=== PATIENT | female | born 1990 | race Caucasian/White ===

== ENCOUNTER 2017-09-10 19:23 | Emergency (ER) | payer BC, SELFPAY ==
[2017-09-10] MEDS ORDERED: Ondansetron ODT 4 MG TAB ONE (20:14)
[2017-09-10] MEDS ORDERED: Acetaminophen 500 MG TAB ONE (20:14)
== END 2017-09-10 20:20 | disposition home or self-care (01) ==
LOC: ERS 19:23
DX: J11.1 Influenza due to unidentified influenza virus with other respiratory manifestations (principal)
CPT/HCPCS: 87804; 99283; Q0162

== ENCOUNTER 2018-09-01 06:00 | Inpatient (IN) | payer BC, OTHER ==
[~2018-09-01 06:00] MED LIST: Butorphanol Tartrate 1 MG/ML VIAL SLOW IVP PRN; Carboprost 250 MCG/ML AMP IM PRN; Diphenoxylate HCl/Atropine Tablet PO PRN; Docusate 100 MG CAP PO PRN; HYDROcodone/Acetaminophen 5/325 mg Tablet PO PRN; Ibuprofen 800 MG TAB PO PRN; Lidocaine 1% (PF) 30 ML VIAL SC PRN; Misoprostol 200 MCG TAB PR PRN; NS w/ Oxytocin 10 units 500 ML IV SCH; Ondansetron PF 4 MG/2 ML Vial IVP PRN; Promethazine HCl 25 MG/ML VIAL IM PRN
[2018-09-01 06:50] VITALS: BMI 34.9
[2018-09-01] MEDS: Lactated Ringer's 1,000 ML IV SCH ×3 (07:25→22:31)
[2018-09-01 07:48] LABS: Hemoglobin 10.6 g/dL (12.0-16.0); Mean Corpuscular HGB CONC 34.2 g/dL (32.0-36.0); Mean Corpuscular Hemoglobin 31.2 pg (27.0-31.0); Mean Corpuscular Volume 91.3 fL (78.0-98.0); Mean Platelet Volume 7.2 fL (7.4-10.4); Platelet Count 223 thou/uL (130-400); RBC Distribution Width 13.2 % (11.5-14.5); White Blood Cell (WBC) Count 9.4 thou/uL (4.8-10.8)
[2018-09-01 08:24] LABS: Syphilis Antibody Nonreactive (Nonreactive); Syphilis Antibody Index 0.03 S/CO (<1.00 Non-Reactive)
[2018-09-01 08:28] LABS: HBSAg Index 0.18 S/CO (0-0.99); Hep B Surf Ag Non-Reactive S/CO (NonReactive)
[2018-09-01] MEDS ORDERED: Fentanyl 4 mcg/Bup 0.1% Cadd 100 ML ONE ×2 (09:06→15:36)
[2018-09-01] MEDS: Calcium Carbonate 500 MG ChewTAB PO PRN ×3 (09:14→14:24)
[2018-09-01] MEDS ORDERED: Lidocaine 1.5%/Epinephrine 1:200,000 5 ML AMPUL IJ ONE (09:33)
[2018-09-01] MEDS ORDERED: Promethazine HCl 25 MG/ML VIAL IM PRN ×2 (09:50→18:53)
[2018-09-01] MEDS ORDERED: Naloxone HCl 0.4 mg/ml Vial IVP PRN ×2 (09:50)
[2018-09-01] MEDS ORDERED: diphenhydrAMINE 50 MG/ML VIAL IVP PRN (09:50)
[2018-09-01] MEDS ORDERED: Lactated Ringer's 500 ML IV PRN (09:50)
[2018-09-01] MEDS ORDERED: Ondansetron PF 4 MG/2 ML Vial IVP PRN ×2 (09:50→18:53)
[2018-09-01] MEDS ORDERED: Eucerin (Mineral Oil/Petrolatum,White) 30 gm Jar TOP PRN (09:50)
[2018-09-01] MEDS ORDERED: Acetaminophen 325 MG TAB PO PRN (09:50)
[2018-09-01] MEDS ORDERED: ePHEDrine/0.9% NaCl/PF SYRINGE 50 mg/10 ml SLOW IVP PRN (09:50)
[2018-09-01] MEDS: Fentanyl 4 mcg/Bupivacaine 0.1% Cassette 100 ML EPIDURAL SCH ×2 (09:52→15:42)
[2018-09-01] MEDS ORDERED: Communication Order-Pharmacy FS SCH (10:00)
[2018-09-01] MEDS ORDERED: Bupivacaine/Epinephrine 0.25% 30 ML VIAL ONE (15:00)
[2018-09-01] MEDS: NS / Oxytocin 40 units/1000ml 1,000 ML IV PRN ×2 (16:56→17:21)
[2018-09-01] MEDS ORDERED: Preparation H Ointment 28 GM TUBE PR PRN (18:53)
[2018-09-01] MEDS ORDERED: Misoprostol 200 MCG TAB VAG PRN (18:53)
[2018-09-01] MEDS ORDERED: Benzocaine/Menthol 20-0.5% 60 ML CAN TOP PRN (18:53)
[2018-09-01] MEDS ORDERED: diphenhydrAMINE 25 MG CAP PO PRN (18:53)
[2018-09-01] MEDS ORDERED: Lanolin Ointment 7 GM TUBE TOP PRN (18:53)
[2018-09-01] MEDS ORDERED: Bisacodyl 10 MG SUPP PR PRN (18:53)
[2018-09-01] MEDS ORDERED: Milk Of Magnesia 30 ML UDCUP PO PRN (18:53)
[2018-09-01] MEDS ORDERED: NS / Oxytocin 40 units/1000ml 1,000 ML IV SCH (18:53)
[2018-09-01] MEDS ORDERED: Adacel (T-DAP) 0.5 ML SYRINGE IM ONE (18:53)
[2018-09-01] MEDS ORDERED: Zolpidem Tartrate 5 MG TAB PO PRN (18:53)
[2018-09-01] MEDS ORDERED: Varicella virus, LIVE 0.5 ML VIAL SC ONE (18:53)
[2018-09-01] MEDS ORDERED: HYDROcodone/Acetaminophen 5/325 mg Tablet PO PRN ×2 (18:53)
[2018-09-01] MEDS ORDERED: Measles/Mumps/Rubella 10 MCG/0.5 ML VIAL SC ONE (18:53)
[2018-09-01] MEDS: Ibuprofen 800 MG TAB PO SCH (19:56)
[2018-09-01] MEDS: Docusate Calcium (SURFAK) 240 MG CAP PO SCH (19:57)
[2018-09-02] MEDS: Ibuprofen 800 MG TAB PO SCH ×2 (04:00→13:51)
[2018-09-02 06:04] LABS: Hemoglobin 10.2 g/dL (12.0-16.0); Mean Corpuscular HGB CONC 33.7 g/dL (32.0-36.0); Mean Corpuscular Hemoglobin 31.4 pg (27.0-31.0); Mean Platelet Volume 7.2 fL (7.4-10.4); Platelet Count 208 thou/uL (130-400); RBC Distribution Width 13.4 % (11.5-14.5); Red Blood Cell (RBC) Count 3.27 mill/uL (4.20-5.40); White Blood Cell (WBC) Count 10.5 thou/uL (4.8-10.8)
[2018-09-02] MEDS ORDERED: Ferrous Sulfate 325 MG TAB PO SCH (08:00)
[2018-09-02] MEDS: Docusate Calcium (SURFAK) 240 MG CAP PO SCH (08:53)
[2018-09-02] MEDS ORDERED: Prenatal Vitamin 1 TAB PO SCH (09:00)
[2018-09-02 16:05] VITALS: BP 127/79; TEMP 98.4
--- NOTE | 2018-09-02 18:27 | PDOC.LDHP ---
Labor and Delivery H&P Chief complaint: scheduled induction HPI: 28 y/o at 39 and 4/7 weeks with borderline Oligohydramnios for term medical induction of labor. Due date: 09/04/18 Grav: 4 Para: 1 Current complications: oligohydramnios Abnormal US findings: Yes Current medications: pre-mily vitamins Previous surgical history: none Allergies/Adverse Reactions: Allergies Allergy/AdvReac Type Severity Reaction Status Date / Time No Known Drug Allergies Allergy Verified 09/01/18 06:43 Social history: none - Physical Exam Vital signs reviewed and normal: yes General: NAD, resting Heart: RRR Lungs: nonlabored breathing Abdomen: NTTP Extremeties: no edema FHT: category 1 - Assessment L&D Assessment: medically indicated induction - Plan Plan: admit to L&D
--- NOTE | 2018-09-02 18:30 | PDOC.PP ---
Post Progress Note Post Day #: 1 PO intake tolerated: yes Flatus: yes Ambulation: yes Vital Signs (12 hours) Temp Pulse Resp BP Pulse Ox 09/02/18 15:38 98.4 F 91 16 127/79 98 09/02/18 11:40 98.2 F 79 20 117/69 09/02/18 08:03 98.1 F 80 20 110/57 L 98 Weight Weight 197 lb - Physical Examination General: NAD Cardiovascular: no m/r/g, RRR Respiratory: clear to auscultation bilaterally, non-labored breathing Abdominal: + bowel sounds Extremities: negative homans (B) Neurological: no gross focal deficits Psychiatric: A&Ox3, normal affect (DC to home planned later today.) Result Diagrams: 09/02/18 04:49 Additional Labs: Post Labs Blood Type A POSITIVE 09/01/18 07:35 Hep Bs Antigen Non-Reactive S/CO (NonReactive) 09/01/18 07:35
== END 2018-09-02 18:21 | disposition home or self-care (01) | DRG 807 ==
LOC: L&D 06:20 → 3SE 19:06
PROVIDERS: ADMIT Obstetrics & Gynecology; ATTEND Obstetrics & Gynecology
PROC: 10E0XZZ Delivery of Products of Conception, External Approach (ICD-10-PCS; principal; 2018-09-01)
PROC: 10907ZC Drainage of Amniotic Fluid, Therapeutic from Products of Conception, Via Natural or Artificial Opening (ICD-10-PCS; 2018-09-01)
DX: O41.03X0 Oligohydramnios, third trimester, not applicable or unspecified (principal); Z37.0 Single live birth; Z3A.39 39 weeks gestation of pregnancy
CPT/HCPCS: 36415; 51702; 85027; 86780; 86850; 86900; 86901; 87340; 90707; 90715; 90716; J2001; J2405; J3490